=== PATIENT | female | born 2000 | race Caucasian/White ===

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

== ENCOUNTER 2023-08-24 00:20 | Emergency (ER) | payer OTHER, SELFPAY ==
[2023-08-24 00:26] VITALS: BP 131/75; PULSE 77; RESP 16; TEMP 36.3; O2SAT 99; BMI 24.3
--- NOTE | 2023-08-24 01:36 | ED_ITS ---
HPI - Skin/Abscess/Foreign Bdy General Chief complaint: Skin/Abscess/Foreign Body Stated complaint: Rash Time Seen by Provider: 08/24/23 01:14 Source: patient and family Mode of arrival: ambulatory Limitations: no limitations History of Present Illness HPI narrative: 23-year-old female otherwise healthy came in for evaluation of diffuse rash on her chest, torso, and 4 extremities, rash or itchy, no fever, no chills, otherwise feeling well. Patient declined any change in her daily lifestyle, no change in soap or detergent, no new clothes or bed sheet. Patient was seen at walk-in clinic yesterday was prescribed prednisone to take for 4 days patient only took for 1 day. Related Data Previous Rx's Medication Instructions Recorded norethindrone (contraceptive) 0.35 0.35 mg PO DAILY 30 days #30 tabs 10/19/20 mg tablet (Hazel) prenat.vits,agnieszka,ret-vuld-cftuk 1 tab PO DAILY #90 tabs 10/19/20 metronidazole 0.75 % (37.5 mg/5 1 appful vaginal BEDTIME 5 days 02/17/22 gram) vaginal gel #37.5 grams diphenhydramine HCl 25 mg capsule 25 mg PO TID PRN itching #30 caps 08/24/23 (Allergy (diphenhydramine)) Allergies Allergy/AdvReac Type Severity Reaction Status Date / Time amoxicillin Allergy Unknown inflammed Verified 02/17/22 13:50 joints Review of Systems Review of Systems: All other systems are reviewed and are negative Constitutional: Reports as per HPI and Reports no additional constitutional c omplaints Eyes: Reports as per HPI and Reports no additional eye complaints Reports system reviewed and no additional complaints, except as documented Cardiovascular: Reports as per HPI and Reports no additional cardiovascular complaints Respiratory: Reports as per HPI and Reports no additional respiratory complaints Gastrointestinal: Reports as per HPI and Reports no additional gastrointestinal complaints Genitourinary: Reports no additional female genitourinary complaints Musculoskeletal: Reports no additional musculoskeletal complaints Skin/Breast: Reports system reviewed and no additional complaints, except as docu Psychiatric: Reports no additional psychiatric complaints Endocrine: Reports no additional endocrine complaints Hematologic/Lymphatic: Reports no additional hematologic/lymphatic complaints Allergic/Immunologic: Reports no additional allergic/immunologic complaints Reports system reviewed and no additional complaints, except as documented and Reports Abnormal speech present [facility] Social History Social History Household Members: Family Housing: Apartment Alcohol intake: never service: No Current occupational status: unemployed Current occupational exposures/hazards: No Gender identity: Female Physical Exam Vital Signs: Vital Signs: Last Vital Signs Temp 97.3 F 08/24/23 00:26 Pulse 77 08/24/23 00:26 Resp 16 08/24/23 00:26 BP 131/75 08/24/23 00:26 Pulse Ox 99 08/24/23 00:26 O2 Del Method Room Air 08/24/23 00:26 BMI result Body Mass Index 24.3 Vital signs have been reviewed and appear to be correct. Blood pressure elevated. Heart rate normal. Respiratory rate normal. Temperature normal. Oxygen saturation normal. Appearance: Alert. Oriented X3. No acute distress. Head: Normal external exam. Normocephalic. Atraumatic. No Avina signs noted. No raccoon eyes noted Eyes: PERRLA. EOMI. Conjunctiva and sclera normal. Eyelids normal. ENT: Patent airway, no stridor, no wheezing. Neck: Normal inspection. Neck supple. FROM. No adenopathy. Thyroid Normal. No meningeal signs. No neck mass noted. CVS: Normal heart rate and rhythm. Heart sound normal. No murmurs noted. Pulses normal throughout. Respiratory: No respiratory distress. Painless inspiration. Breath sounds normal. No wheezes/rales/rhonchi noted. Chest nontender. No accessory muscle usage noted or decreased air movement noted. Abdomen: Soft and nontender. Bowel sounds normal in all 4 quadrants. No distention noted. No organomegaly noted. No visible injury noted. Back: No CVA tenderness. Full range of motion noted. Skin: Diffuse macular papular rash on the torso and 4 extremity. Extremities: No lower extremity edema. Extremities exhibit normal range of motion. Extremities nontender. Neuro: Oriented X 3. Cranial nerve exam: II-XII are grossly intact No motor deficit. No sensory deficit. Reflexes normal. Course Reevaluation(s) Reevaluation #1: Allergic reaction of unclear etiology, patient was instructed to finish the 4 days course of prednisone will add Benadryl if needed. Time: 01:41 Medical Decision Making Differential Diagnosis Differential Diagnoses: The differential diagnosis associated with the presentation includes (Anaphylactic reaction, allergic reaction, hives.) Admission/Observation Consideration of admission/observation: Escalation of care including admission/observation considered Discharge Plan Discharge Clinical Impression: Urticaria Patient Disposition: Home, Self-Care Instructions: Acute Rash (ED) Additional Instructions: Come back if throat swelling, difficulty breathing, wheezing. Finish the whole course of prednisone as prescribed. Prescriptions: New diphenhydramine HCl [Allergy (diphenhydramine)] 25 mg capsule 25 mg PO TID PRN (Reason: itching) Qty: 30 0RF No Action norethindrone (contraceptive) [Hazel] 0.35 mg tablet 0.35 mg PO DAILY 30 Days Qty: 30 11RF prenat.vits,agnieszka,nxi-qukk-pnthc Tablet 1 tab PO DAILY Qty: 90 3RF metronidazole 0.75 % (37.5mg/5 gram) gel 1 appful vaginal BEDTIME 5 Days Qty: 37.5 0RF
[2023-08-24] MEDS: diphenhydrAMINE HCL 25 MG CAPSULE 50 MG PO (01:44)
== END 2023-08-24 01:47 | disposition home or self-care (01) ==
PROVIDERS: Emergency Provider Emergency Medicine
DX: L50.9 Urticaria, unspecified (principal)
CPT/HCPCS: 99202; 99282; 99283

== ENCOUNTER 2023-08-24 10:33 | Outpatient (AMB) | payer OTHER, SELFPAY ==
[2023-08-24 10:38] VITALS: BMI 24.7
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
== END 2023-08-24 11:49 | disposition home or self-care (01) ==
LOC: HO.HWSM 10:33
PROVIDERS: Visit Provider Advanced Practice Midwife
DX: L50.9 Urticaria, unspecified (principal); Z20.2 Contact with and (suspected) exposure to infections with a predominantly sexual mode of transmission; R21 Rash and other nonspecific skin eruption; Z12.4 Encounter for screening for malignant neoplasm of cervix
CPT/HCPCS: 99203

== ENCOUNTER 2023-08-24 11:36 | Outpatient (REF) | payer OTHER, SELFPAY ==
[2023-08-25 03:51] LABS: CT PCR NOT DETECTED (Not Detect.); NG PCR NOT DETECTED (Not Detect.)
[2023-08-25 14:27] LABS: BV Int Neg Control Negative (Negative); BV Int Pos Control Positive (Positive)
== END 2023-08-24 11:37 | disposition home or self-care (01) ==
LOC: HO.LNP 11:36
PROVIDERS: Visit Provider Advanced Practice Midwife
DX: L50.9 Urticaria, unspecified (principal); Z12.4 Encounter for screening for malignant neoplasm of cervix; Z20.2 Contact with and (suspected) exposure to infections with a predominantly sexual mode of transmission
CPT/HCPCS: 0353U; 87480; 87510; 87660; 88142

== ENCOUNTER 2023-08-24 11:38 | Outpatient (REF) | payer OTHER, SELFPAY ==
[2023-08-25 03:39] LABS: Syphilis Screen Nonreactive (Nonreactive)
[2023-08-25 03:47] LABS: HIV AB/AG Nonreactive (Nonreactive); HIV Num 1 0.07 S/CO (0.00-0.99); Hepatitis B Surface Antigen Negative (Negative); ~HepC Num1 0.12 S/CO (0.00-0.79); ~Hepatitis C Antibody Nonreactive (Nonreactive)
[2023-08-27 21:23] LABS: Herpes Simplex Type 1 IgG <0.90 index; Herpes Simplex Type 2 IgG <0.90 index
== END 2023-08-24 11:39 | disposition home or self-care (01) ==
LOC: HO.HHCL 11:38
PROVIDERS: Visit Provider Advanced Practice Midwife
DX: L50.9 Urticaria, unspecified (principal); Z20.2 Contact with and (suspected) exposure to infections with a predominantly sexual mode of transmission
CPT/HCPCS: 36415; 86695; 86696; 86780; 86803; 87340; 87389

== ENCOUNTER 2023-09-20 12:37 | Outpatient (REF) | payer OTHER, SELFPAY ==
[2023-09-21 09:51] LABS: BV Int Neg Control Negative (Negative); BV Int Pos Control Positive (Positive)
== END 2023-09-20 12:38 | disposition home or self-care (01) ==
LOC: HO.LAB 12:37
PROVIDERS: Visit Provider Advanced Practice Midwife
DX: N89.8 Other specified noninflammatory disorders of vagina (principal); B96.89 Other specified bacterial agents as the cause of diseases classified elsewhere
CPT/HCPCS: 87480; 87510; 87660; 99212

== ENCOUNTER 2023-09-20 12:37 | Outpatient (AMB) | payer OTHER, SELFPAY ==
--- NOTE | 2023-09-20 12:40 | MHC.OFFVIS ---
Intake Vital Signs 09/20/23 12:41 Height 5 ft 6 in Weight 153 lb BMI 24.7 BP 110/70 Intake Visit Reasons: ? 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 She denies any pelvic pain or urinary symptoms. She has currently not with an intimate partner and had recent STD testing. [facility] Social History (Updated 08/24/23 @ 10:42 by GUZMAN Parker) Household Members: Family Both parents involved: Yes Caregiver staying overnight: No Housing: Apartment Alcohol intake: never e-Cigarette/Vaping Use: Currently Using service: No Current occupational status: unemployed Current occupational exposures/hazards: No Gender identity: Female Female Reproductive History Menstrual Age of Menarche: 13 Date of last menstrual period: 09/12/23 Review of Systems Const All systems reviewed & are unremarkable except as noted in HPI and below Physical Exam Vital Signs: Last Vital Signs BP 110/70 09/20/23 12:41 BMI result Body Mass Index 24.7 Const General: cooperative, healthy appearing and no acute distress Orientation/consciousness: patient oriented x3 GI Inspection: Yes normal to inspection Palpation (GI): Soft to palpation and Other GI palpation findings present (Nontender) Rectal Exam - Female: visual inspection normal General: Yes bladder normal to palpation External Female Exam: normal appearance of the urethra Speculum Exam - Vagina: normal appearance of the vagina, normal palpation and abnormal vaginal discharge (White thin odorous discharge) Speculum Exam - Cervix: normal appearance of the cervix and normal palpation Bimanual exam- vagina & uterus: normal bimanual exam, normal palpation, uterine size normal, bladder normal to palpation, normal palpation, uterine shape normal and non-tender Bimanual Exam- Adnexa, other: normal adnexae Neuro General: patient oriented x3 Assessment & Plan Assessment & Plan (1) Bacterial vaginosis: Code(s): N76.0 - Acute vaginitis; B96.89 - Other specified bacterial agents as the cause of diseases classified elsewhere Plan Discussed bacterial vaginosis. Based on patient's history and physical exam most likely is BV and do the odor and symptoms plan is to treat now versus waiting for the culture to return. I did inform her if it has a different organism she may need more treatment or another treatment. Counseled regarding medication options either the cream or the pill dosing, side effects, and warnings. She chooses to use the Metrogel cream. Advised to use condoms if becoming sexually active. All of her questions and concerns were addressed to the best of my ability and shared decision making. She is agreeable to the plan of care. This note is constructed using voice recognition software. While every effort has been made to ensure accuracy, stitcher feeder errors may have been included. Orders: Orders Bacterial Vaginosis Panel Today N89.8 - Other specified noninflammatory disorders of vagina Medications: New metronidazole 0.75%(37.5mg/5gram) 1 appful vaginal DAILY 70 grams 0RF 5 days Coding Level of Care Code Est Pt Level 3 (52762) Diagnoses Bacterial vaginosis N76.0; B96.89
[2023-09-20 12:41] VITALS: BP 110/70; BMI 24.7
== END 2023-09-20 13:41 | disposition home or self-care (01) ==
LOC: HO.HWS 12:38
PROVIDERS: Visit Provider Advanced Practice Midwife
DX: N76.0 Acute vaginitis (principal); B96.89 Other specified bacterial agents as the cause of diseases classified elsewhere
CPT/HCPCS: 99213